=== PATIENT | female | born 1985 | race Caucasian/White ===

== ENCOUNTER → 2016-08-21 | Outpatient (CLI) | payer OTHER ==
[2016-08-21 09:45] LABS: PREG INTERNAL NEGATIVE QC NEG CLEAR BACKGROUND; PREG INTERNAL POSITIVE QC POS CONTROL LINE
== END | disposition home or self-care (01) ==
LOC: C.LAB 08:06
PROVIDERS: ATTEND Obstetrics & Gynecology
DX: Z30.9 Encounter for contraceptive management, unspecified (principal)

== ENCOUNTER 2019-03-11 08:05 | Inpatient (IN) ==
[2019-03-11] MEDS ORDERED: OXYTOCIN 30 UNITS/500 ML BAG IV PRN ×2 (08:09→15:20)
--- NOTE | 2019-03-11 08:13 | History & Physical Report ---
Date of Service March 11, 2019 Assessment & Plan (1) Elective induction of labor planned: 33 yo F @39w1d PMHx delivery on [place], PROM in previous admitted for induction of labor. - Admit under care of Dr. Cervantes. AROM/pit as indicated. - Fetus with category 1 tracing, anticipate normal . - Discussed pain management plan with pt; desires epidural. - Rubella immune, blood type A+, Ab screen negative. (2) with 39 completed weeks gestation: (3) : (4) History of delivery, currently in third trimester: History of Present Illness Chief Complaint: Induction of labor Primary Care Provider: Christian Spain MD La is a 33 yo F PMHx delivery on [place] and PROM in previous ; dating parameters 39w1d by US; induction today due to hx of rapid labor; no complications this . Attended OB appointments with [facility]. Has not felt contractions today, + movement; no fluid loss; no vaginal blood loss Labs (12/23/18 for Hgb/Hct, 08/19/18 all other labs): Blood type: A+ Antibody screen: negative Hgb: 11.7 Hct: 35.7 WBC: 11.44 Plt: 291 Rubella status: immune VDLR/RPR: NR Gonorrhea: negative Chlamydia: negative HIV: negative GBS: negative HbSAg: negative Glucose tolerance test x2: 105, 134 Allergies Allergy/AdvReac Type Severity Reaction Status Date / Time erythromycin base Allergy Unknown CHILDHOOD Verified 03/03/19 15:43 ALLERGY W/ UNKNOWN RXN Home Medications Home Medications Medication Instructions Recorded Confirmed Type doxylamine succinate 25 mg tablet 0.5 mg PO DAILY tab 01/11/19 03/11/19 History 1 tab PO DAILY 01/11/19 03/11/19 History vitamin,calcium,dddmfqgy-xmel-oqxug acid tablet Patient History Medical History Bradycardic baseline heart rate Abnormal biochemical finding on screening of mother Gestational proteinuria Migraine Miscarriage No known health problems Premature rupture of membranes delivery Varicella Surgical History History of oral surgery S/P tonsillectomy Family History Grandmother (Maternal) Diabetes Mother Hypertension Other No significant family history Social History Preferred Language: French Communication Ability: Effective Beliefs That Will Affect Care: None marital status: Current Living Situation: Family current occupational status: employed Other Information That Helps Us Care for You: No Feels Safe at Home: Yes Safety Concerns: Feels Safe At This Time Smoking Status: Never smoker Do You Dip or Chew Tobacco: No ; Hx Alcohol Use: No Hx Substance Use: No OB History G1: delivered @ ~36 weeks, with vacuum assist, rapid labor G2: delivered @ ~39 weeks, with rapid labor G3: spontaneous <12 weeks G4: current Review of Systems Constitutional: denies fever, chills, sweats, headache Respiratory: denies SOB, difficulty breathing Cardiac: denies CP, chest palpitations, chest pressure Breast: denies breast pain : denies dysuria Physical Exam Physical Exam: General: patient is alert and oriented, in NAD Cardiac: +S1/S2, no murmurs rubs or gallops Respiratory: lungs CTA b/l, anteriorly and posteriorly, no wheezes rales or rhonchi, no increased work of breathing, symmetric chest rise, no respiratory distress Abdomen: soft, NT, +bowel sounds Uterus: uterine fundus firm Lower Extremities: no LE edema or swelling, no deep calf pain, Rinku's sign negative b/l Genitourinary: Manual OB Exam: + cervical dilation 2 cm, + cervical effacement 70% and + station -2 OB Exam Monitor Tracing: + external FHT monitor used, + external uterine monitor used, + category I and + normal FHT variability Results & Data Vital Signs (Past 12 Hours) Vital Signs Temp Pulse BP 03/11/19 08:24 87 110/70 03/11/19 08:17 37.2 C Intake and Output 03/10/19 03/11/19 03/11/19 22:59 06:59 14:59 Other: Weight 85.729 kg Patient Weight 03/12/19 06:59 Weight 85.729 kg Laboratory Results Laboratory Results - last 24 hr 03/11/19 08:35 WBC Pending RBC Pending Hgb Pending Hct Pending MCV Pending MCH Pending MCHC Pending Plt Count Pending Medications Administered Current Medications Lactated Ringer's (Lr) 1,000 mls @ 125 mls/hr IV .Q8H PRN; Protocol PRN Reason: L&D Protocol Stop: 03/13/19 08:08 Oxytocin (Pitocin) 30 units in 500 mls @ 1 mls/hr IV .Q24H PRN; Protocol PRN Reason: Labor Induction/Augmentation Stop: 04/10/19 08:09 Oxytocin (Pitocin) 30 units in 500 mls @ 333.333 mls/hr IV .Q1H30M PRN; Protocol PRN Reason: Bleeding Control Stop: 04/10/19 08:08 Code Status & VTE Plan Code Status full code Monitoring External Monitor FHR 130s/150s, small accels and decels Tocodynamometer q~5 minutes, irregular Supervising Physician Co-Signing Physician Notes Resident Physician Supervision Note: I interviewed and examined the patient. Discussed with Dr. Duran and agree with findings and plan as documented in the note. Any exceptions or clarifications are listed here: pt here for planned elective induction for h/o precip delivery in prior . gbs neg. given exam yest, planned pit and arom. pit has been infusing. arom just completed, see other note. pt received epidural for analgesia and is comfortable at this time. categ 1 fetus. Documented By: Belen Cervantes MD, FACOG Resident Activity Tracking Resident Involvement: Resident Care Provided Care Provided: [facility] Medicine (1) Weeks of gestation: 39 weeks Qualified Code(s): Z3A.39 - 39 weeks gestation of
[2019-03-11 09:00] LABS: Hematocrit (blood only) 37.4 % (37-47); Mean Corpuscular Hemoglobin 30.4 pg (25-34); Mean Corpuscular Volume 94.7 fL (80-100); Mean Platelet Volume 10.7 fL (7.4-10.4); Platelet Count 260 K/uL (130-400); RDW Coefficient of Variation 14.6 % (11.5-14.5); RDW Standard Deviation 50.6 fL (36.4-46.3); Red Blood Count 3.95 M/uL (4.2-5.4); White Blood Count 9.92 K/uL (4.8-10.8)
[2019-03-11 09:01] LABS: Mean Corpuscular Hgb Conc 32.1 g/dL (32-36)
[2019-03-11] MEDS: LACTATED RINGER'S 1,000 ML IV PRN ×2 (09:07→11:45)
[2019-03-11] MEDS: OXYTOCIN 30 UNITS/500 ML BAG IV PRN ×2 (09:08→09:45)
[2019-03-11] MEDS ORDERED: ePHEDrine sulfate 50 MG/ML AMP ONE (11:18)
[2019-03-11] MEDS ORDERED: BUPIVACAINE 0.25% 30 ML VIAL ONE (11:18)
[2019-03-11] MEDS ORDERED: fentaNYL citrate 100 MCG/2 ML VIAL ONE (11:19)
[2019-03-11] MEDS ORDERED: fentaNYL 2MCG/ML ROPIV 1.25MG/ML 100 ML BAG EPI ONE (11:19)
--- NOTE | 2019-03-11 11:34 | Anesthesiology Consultation ---
Date of Service March 11, 2019 Assessment & Plan Chart Review Chart Review: Patient NOT seen in Pre Admission Testing and Acceptable Risk for Labor Epidural Consults Requested none ASA ASA2 Proposed Anesthesia Anesthesia Type: Labor Epidural and CSE Risk / Benefits Reviewed With: PT / POA / Parent / Guardian, Accepts Plan and Informed Consent Obtained History Height/Weight Height: 5 ft 4 in Weight: 85.729 kg Allergies Allergy/AdvReac Type Severity Reaction Status Date / Time erythromycin base Allergy Unknown CHILDHOOD Verified 03/03/19 15:43 ALLERGY W/ UNKNOWN RXN Medications Home Medications Medication Instructions Recorded Confirmed Last Taken doxylamine succinate 25 mg tablet 0.5 mg PO DAILY tab 01/11/19 03/11/19 03/10/19 23:00 1 1 tab PO DAILY 01/11/19 03/11/19 03/10/19 23:00 vitamin,calcium,xwvabwno-qbpk-sigqn acid tablet Active Medications Generic Name Dose Route Start Last Admin Trade Name Freq PRN Reason Stop Dose Admin Lactated Ringer's 1,000 mls @ 125 mls/hr 03/11/19 08:09 03/11/19 11:15 Lr IV 03/13/19 08:08 999 mls/hr .Q8H PRN Infusion L&D Protocol Protocol Oxytocin 30 units in 500 mls @ 7 mls/hr 03/11/19 08:10 03/11/19 10:50 Pitocin IV 04/10/19 08:09 0.42 units/hr .Q24H PRN 7 mls/hr Labor Induction/Augmentation Titration Protocol 0.42 UNITS/HR NPO Date Last Intake of Fluids: 03/11/19 Time Last Intake of Fluids: 10:00 Date Last Intake of Solids: 03/11/19 Time Last Intake of Solids: 08:00 Past Medical History Medical History Bradycardic baseline heart rate Abnormal biochemical finding on screening of mother Gestational proteinuria Migraine Miscarriage No known health problems Premature rupture of membranes delivery Varicella Exercise / Class Metabolic Activity II 4-5 Yardwork/Stairs/Walk up hill Past Family History Family History Grandmother (Maternal) Diabetes Mother Hypertension Other No significant family history Past Surgical History Surgical History History of oral surgery S/P tonsillectomy Past Anesthesia History No Hx of Anesthesia Complications and No Family Hx of Anesthesia Complications Social History Smoking Status: Never smoker Do You Dip or Chew Tobacco: No Hx Alcohol Use: No Hx Substance Use: No Review of Systems no chest pain or sob Physical Exam Vital Signs Last Vital Signs Temp 37.2 C 03/11/19 08:17 Pulse 71 03/11/19 11:31 BP 112/68 03/11/19 10:33 Pulse Ox 99 03/11/19 11:31 RR 20 ENMT Mouth: no TMJ abnormality Thyromental Distance: > or= 3.5 Finger Breadths Mallampati Class: II Neck normal visual inspection Respiratory normal respiratory effort Auscultation: lungs clear to auscultation bilaterally Cardiovascular Rate/Rhythm: regular rate and regular rhythm Musculoskeletal Spine: normal cervical ROM Neurologic moves all extremities Psychiatric Orientation: alert and oriented x 3 Testing Laboratory Results 03/11/19 08:35
[2019-03-11] MEDS ORDERED: fentaNYL 2MCG/ML ROPIV 1.25MG/ML 100 ML BAG EPI PRN (11:35)
[2019-03-11] MEDS ORDERED: ONDANSETRON INJ 2 MG/ML 2 ML VIAL IV PRN (11:35)
[2019-03-11] MEDS ORDERED: DiphenhydrAMINE HCL 50 MG/ML VIAL IV PRN (11:35)
[2019-03-11] MEDS ORDERED: NALBUPHINE HCL INJ 10 MG/ML AMP IV PRN (11:35)
[2019-03-11] MEDS ORDERED: NALOXONE HCL 0.4 MG/1 ML VIAL/CARP IV PRN (11:35)
[2019-03-11] MEDS ORDERED: NALOXONE HCL 1 MG in SODIUM CHLORIDE 0.9% 1000ML 1,000 ML IV PRN (11:35)
[2019-03-11] MEDS ORDERED: ePHEDrine sulfate 50 MG/ML AMP IV PRN (11:35)
--- NOTE | 2019-03-11 12:48 | Labor Progress Brief Note ---
Date of Service March 11, 2019 Subjective Reason For Note: Routine Evaluation pt without pain, resting, has epidural. pit at 7, regular ctx. aware i am assuming care. Assessment & Plan (1) with 39 completed weeks gestation: (2) Elective induction of labor planned: (3) History of precipitous delivery: will see how arom advances labor. fhts categ 1. pt aware i am taking over care. Physical Exam Constitutional: WD/WN, vitals as above Genitourinary: Manual OB Exam: + cervical dilation 4 cm, + cervical effacement (75%), + station -2 and + amniotic fluid (arom) clear OB Exam Monitor Tracing: + external FHT monitor used (categ 1 reactive), + external uterine monitor used (q2), + category I and + normal FHT variability Results & Data Vital Signs (Past 12 Hours) Vital Signs Temp Pulse BP Pulse Ox 03/11/19 12:41 68 90/51 L 97 03/11/19 12:36 69 113/62 100 03/11/19 12:31 77 98 03/11/19 12:30 69 111/60 03/11/19 12:26 70 99 03/11/19 12:25 68 113/61 03/11/19 12:21 79 100 03/11/19 12:20 71 115/65 03/11/19 12:16 69 98 03/11/19 12:15 67 118/62 03/11/19 12:11 88 97 03/11/19 12:10 71 97/56 L 03/11/19 12:07 82 108/68 03/11/19 12:06 79 97 03/11/19 12:01 73 98 03/11/19 11:59 71 98/58 L 03/11/19 11:57 72 99/57 L 03/11/19 11:56 75 100 03/11/19 11:55 66 102/55 L 03/11/19 11:53 75 109/58 L 03/11/19 11:51 70 113/56 L 99 03/11/19 11:50 76 94 03/11/19 11:49 71 110/61 03/11/19 11:46 91 H 100 03/11/19 11:44 70 84 L 03/11/19 11:41 67 100 03/11/19 11:37 67 104/63 03/11/19 11:36 67 100 03/11/19 11:35 84 93 03/11/19 11:31 71 99 03/11/19 10:33 71 112/68 03/11/19 09:12 77 113/70 03/11/19 08:30 77 113/70 03/11/19 08:24 87 110/70 03/11/19 08:17 99.0 F
--- NOTE | 2019-03-11 14:46 | Delivery Summary ---
Vaginal Delivery Summary Date of Service March 11, 2019 The patient dilated to complete and pushed to deliver a viable male Apg ars 7 and 10 via over 2nd degree perineal laceration. Mouth and nose bulb suctioned at perineum. Loose nuchal cord reduced with ease. Shoulders and body delivered with ease. Infant was vigorous and crying at . Cord clamped at 30 seconds of life and to maternal abdomen where the cord was then doubly clamped and cut. Cord blood and cord gases obtained. Placenta delivered spontaneously and intact, three-vessel cord. Hemostasis achieved with dilute pitocin and uterine massage. Cervix and sulci intact. Laceration repaired in the routine fashion with 3-0 vicryl. EBL 300 cc. Mother and baby stable recovery.
[2019-03-11 15:03] LABS: Cord Venous Blood HCO3 26 mmol/L (18.4-26.8); Cord Venous Blood PCO2 50 mmHg (30.4-57.2); Cord Venous Blood PO2 24 mmHg (14.1-43.3); Cord Venous Blood pH 7.33 (7.20-7.44)
[2019-03-11 15:09] LABS: Base Excess Cord Arterial Bld -2.3 mEq/L (-9-1.8); CO2 Cord Arterial Blood 68 mmHg (39.1-73.5); HCO3 Cord Arterial Blood 28 mmol/L (19.7-28.5); pH Cord Arterial Blood 7.23 (7.1-7.38)
[2019-03-11 15:10] LABS: O2 Saturation Cord Venous Bld < 60.0 % (<68)
[2019-03-11 15:11] LABS: Oxygen Sat Cord Arterial Blood < 60.0 % (<60)
[2019-03-11] MEDS ORDERED: bisacodyL 10 MG SUPP PR PRN (15:20)
[2019-03-11] MEDS ORDERED: HYDROCORTISONE ACETATE 25 MG SUPP PR PRN (15:20)
[2019-03-11] MEDS ORDERED: OXYCODONE/ACETAMINOPHEN 5mg/325mg TAB PO PRN (15:20)
[2019-03-11] MEDS ORDERED: DIPHTHERIA/TETANUS/PERTUSSIS 0.5 ML SYR/VIAL IM ONE (15:20)
[2019-03-11] MEDS ORDERED: ACETAMINOPHEN 325 MG TAB PO PRN (15:20)
[2019-03-11] MEDS ORDERED: SUPERCREAM 0.870% 15 GM JAR EXT PRN (15:20)
[2019-03-11] MEDS ORDERED: BENZOCAINE 20% AER SPR 82.5 GM CAN EXT PRN (15:20)
[2019-03-11] MEDS: IBUPROFEN 600 MG TAB PO PRN ×2 (16:18→20:38)
--- NOTE | 2019-03-11 16:52 | Anesthesia Procedure Note ---
Date of Service March 11, 2019 Anesthesia Post Epidural Note Vital Signs Vital Signs: Temp Pulse Resp BP Pulse Ox 36.3 C L 67 20 99/57 L 91 03/11/19 13:20 03/11/19 16:40 03/11/19 13:20 03/11/19 16:40 03/11/19 14:36 Pain Intensity Abdomen: Pain Intensity: 0 Notes Mental Status: alert / awake / arousable and participated in evaluation Nausea / Vomiting: adequately controlled Pain: adequately controlled Airway Patency, RR, SpO2: stable & adequate BP & HR: stable & adequate Hydration State: stable & adequate Neuraxial Anesthesia: was administered and sensory block resolved Anesthetic Complications: no major complications apparent and Pt Satisfied with anesthetic care Epidural: Removed without complications
[2019-03-11] MEDS: DOCUSATE SODIUM 100 MG CAP PO SCH (20:38)
[2019-03-12] MEDS: IBUPROFEN 600 MG TAB PO PRN ×4 (00:11→15:27)
[2019-03-12 06:40] LABS: Hematocrit (blood only) 37.4 % (37-47); Hemoglobin 12.1 g/dL (12.0-16.0); Mean Corpuscular Hemoglobin 30.5 pg (25-34); Mean Corpuscular Hgb Conc 32.4 g/dL (32-36); Mean Corpuscular Volume 94.2 fL (80-100); Mean Platelet Volume 10.9 fL (7.4-10.4); Platelet Count 247 K/uL (130-400); RDW Coefficient of Variation 14.8 % (11.5-14.5); RDW Standard Deviation 50.6 fL (36.4-46.3); Red Blood Count 3.97 M/uL (4.2-5.4); White Blood Count 14.03 K/uL (4.8-10.8)
--- NOTE | 2019-03-12 06:53 | Obstetrical Progress Note ---
Date of Service <Sarah Odell DO - Last Filed: 03/12/19 07:59> March 12, 2019 Assessment & Plan <Sarah Odell DO - Last Filed: 03/12/19 07:59> (1) Encounter for care and examination after delivery: 33 yo F PPD #1 following vaginal delivery at 39w1d, doing well and without complaints this morning. - PPD #1 - Feels well, ambulating well, voiding well. - For discharge today after baby ready. - Following d/c will have f/u in 6 weeks. - Blood type A+, antibody screen negative, Rubella immune. - Discussed discharge instructions and answered all patient questions. Subjective <Sarah Odell - Last Filed: 03/12/19 07:59> La is a 3 yo female ; PPD # 1 following vaginal delivery at 39w1d; doing well this AM; no abdominal cramping/pain; voiding well, passing gas but no BM; tolerating meals overnight, able to ambulate some within the room. Some persistent spotting this morning but improved from yesterday. Desires discharge today. Review of Systems Constitutional: denies fever, chills, sweats, headache Respiratory: denies SOB, difficulty breathing Cardiac: denies CP, chest palpitations, chest pressure Breast: denies breast pain : denies dysuria Physical Exam <Sarah Odell - Last Filed: 03/12/19 07:59> General: patient is alert and oriented, in NAD Cardiac: +S1/S2, no murmurs rubs or gallops Respiratory: lungs CTA b/l, anteriorly and posteriorly, no wheezes rales or rhonchi, no increased work of breathing, symmetric chest rise, no respiratory distress Abdomen: soft, NT, +bowel sounds Uterus: uterine fundus firm, palpable 3cm below the umbilicus Lower Extremities: no LE edema or swelling, no deep calf pain, Rinku's sign negative b/l Results & Data <Sarah Odell - Last Filed: 03/12/19 07:59> Vital Signs (Past 12 Hours) Vital Signs Temp Pulse Resp BP 03/12/19 04:00 36.8 C 70 18 110/66 03/11/19 23:30 36.6 C 71 18 102/67 03/11/19 19:40 36.6 C 62 18 96/64 L Laboratory Results Laboratory Results - last 24 hr 03/11/19 03/11/19 03/11/19 08:35 14:29 14:29 WBC 9.92 RBC 3.95 L Hgb 12.0 Hct 37.4 MCV 94.7 MCH 30.4 MCHC 32.1 RDW Std Deviation 50.6 H RDW Coeff of Nandini 14.6 H Plt Count 260 MPV 10.7 H Cord ABG pH 7.23 Cord ABG pCO2 68 Cord ABG pO2 13.0 Cord ABG HCO3 28 Cord ABG Base Excess -2.3 Cord ABG O2 Sat < 60.0 Cord VBG pH 7.33 Cord VBG pCO2 50 Cord VBG pO2 24 Cord VBG HCO3 26 Cord VBG Base Excess -1.0 Cord VBG O2 Sat < 60.0 Barometric Pressure 733.5 733.5 Blood Gas Comments ANDREWS ANDREWS 03/12/19 06:13 WBC 14.03 H RBC 3.97 L Hgb 12.1 Hct 37.4 MCV 94.2 MCH 30.5 MCHC 32.4 RDW Std Deviation 50.6 H RDW Coeff of Nandiin 14.8 H Plt Count 247 MPV 10.9 H Cord ABG pH Cord ABG pCO2 Cord ABG pO2 Cord ABG HCO3 Cord ABG Base Excess Cord ABG O2 Sat Cord VBG pH Cord VBG pCO2 Cord VBG pO2 Cord VBG HCO3 Cord VBG Base Excess Cord VBG O2 Sat Barometric Pressure Blood Gas Comments Medications Administered Current Medications Acetaminophen (Tylenol) 650 mg PO Q6H PRN PRN Reason: Pain/GUERRERO/Fever Stop: 04/10/19 15:19 Benzocaine (Dermoplast Pain Relieving [place]) 1 appln EXT PRN PRN PRN Reason: Perineal Discomfort Stop: 04/10/19 15:19 Last Admin: 03/12/19 02:34 Dose: 1 appln Documented by: Bisacodyl (Dulcolax) 10 mg WA DAILY PRN PRN Reason: No BM on 2nd post- day Stop: 04/10/19 15:19 Cocaine HCl (Supercream 0.870%) 1 gm EXT BID PRN PRN Reason: Hemorrhoidal Inflammation Stop: 03/25/19 15:19 Diphenhydramine HCl (Benadryl) 25 mg IV Q6H PRN PRN Reason: Itching Stop: 03/12/19 11:34 Docusate Sodium (Colace) 100 mg PO DAILY@08,21 ADELINA Stop: 04/10/19 20:59 Last Admin: 03/11/19 20:38 Dose: 100 mg Documented by: Ephedrine Sulfate (Ephedrine Sulfate) 10 mg IV Q5M PRN PRN Reason: Hypotension Stop: 03/12/19 11:34 Hydrocortisone (Anusol Hc) 25 mg WA BID PRN PRN Reason: Hemorrhoidal Inflammation Stop: 04/10/19 15:19 Naloxone HCl 1 mg/ Sodium (Chloride) 1,002.5 mls @ 50 mls/hr IV .Q20H3M PRN PRN Reason: itching or nausea Stop: 03/12/19 11:34 Oxytocin (Pitocin) 30 units in 500 mls @ 333.333 mls/hr IV .Q1H30M PRN; Protocol PRN Reason: Bleeding Control Stop: 04/10/19 15:19 Ibuprofen (Motrin) 600 mg PO Q4H PRN PRN Reason: Pain/GUERRERO/Cramping/Fever Stop: 04/10/19 15:19 Last Admin: 03/12/19 06:26 Dose: 600 mg Documented by: Nalbuphine HCl (Nubain) 5 mg IV Q10M PRN PRN Reason: itching or nausea Stop: 03/12/19 11:34 Naloxone HCl (Narcan) 0.1 mg IV UD PRN PRN Reason: respiratory depression Stop: 03/12/19 11:34 Ondansetron HCl (Zofran) 4 mg IV Q6H PRN PRN Reason: Nausea And Vomiting Stop: 03/12/19 11:34 Oxycodone/Acetaminophen (Percocet 5mg/325mg) 1 tab PO Q4H PRN PRN Reason: Pain not relieved by... Stop: 03/25/19 15:19 Prenat Multivit/[place]/Iron/Folic Ac ( Vitamin) 1 tab PO DAILY@08 [facility] Stop: 04/11/19 07:59 Ropivacaine (Epidural (L&D)) 100 ml EPI PRN PRN; Protocol PRN Reason: Pain R/T Labor Stop: 03/12/19 11:34 <Belen Cervantes MD, FACOG - Last Filed: 03/12/19 08:13> Co-Signing Physician Notes Resident Physician Supervision Note: I was present with Dr. Odell during the history and exam. I discussed the case with the resident and agree with the findings and plan as documented in the note. Any exceptions or clarifications are listed here: doing well, desires d/c home after 24hrs. instructions reviewed. plan 6wk check up. ff 3down nt. . Documented By: Belen Cervantes MD, FACOG Resident Activity Tracking <Sarah Odell, DO - Last Filed: 03/12/19 07:59> Resident Involvement: Resident Care Provided Care Provided: Adult Hospital Medicine
[2019-03-12] MEDS ORDERED: PRENATAL VITAMIN 1 TAB PO SCH (08:00)
[2019-03-12] MEDS: DOCUSATE SODIUM 100 MG CAP PO SCH (08:36)
== END 2019-03-12 18:00 | disposition home or self-care (01) | DRG 807 ==
LOC: 4S1 08:05 → 4S2 17:39